=== PATIENT | female | born 1965 | race Caucasian/White ===

== ENCOUNTER → 2017-10-07 | Outpatient (CLI) | payer OTHER ==
[~2017-10-07] VITALS: Ht 162.6 cm; Wt 87.8 kg
[~2017-10-07] MED LIST: BCP TD; CEPHALEXIN; ESTRACE2 MG PO; FORT1000TA PO; ZESTORETIC 12.51 TA1 PO
[2017-10-07 09:36] VITALS: BP 130/90; PULSE 84
== END ==
LOC: LIGHT 08:56
DX: E11.9 Type 2 diabetes mellitus without complications (principal); I10 Essential (primary) hypertension; G47.33 Obstructive sleep apnea (adult) (pediatric); E66.9 Obesity, unspecified; Z68.33 Body mass index [BMI] 33.0-33.9, adult; Z71.3 Dietary counseling and surveillance

== ENCOUNTER → 2017-10-09 | Outpatient (CLI) | payer OTHER | LOC: MC.RAD 10:13 | DX: Z12.31 Encounter for screening mammogram for malignant neoplasm of breast (principal) ==

== ENCOUNTER → 2017-10-27 | Outpatient (CLI) | payer OTHER ==
[~2017-10-27] VITALS: Ht 162.6 cm; Wt 86.4 kg
== END ==
LOC: LIGHT 09:45
DX: Z01.89 Encounter for other specified special examinations (principal)

== ENCOUNTER → 2017-11-03 | Outpatient (CLI) | payer OTHER | LOC: LIGHT 14:50 | DX: Z01.818 Encounter for other preprocedural examination (principal) ==

== ENCOUNTER → 2017-11-05 | Outpatient (CLI) | payer OTHER ==
[~2017-11-05] VITALS: Ht 162.6 cm; Wt 87.8 kg
[2017-11-05 08:34] VITALS: BP 150/90; PULSE 72
== END ==
LOC: LIGHT 08:28
DX: E11.9 Type 2 diabetes mellitus without complications (principal); I10 Essential (primary) hypertension; G47.33 Obstructive sleep apnea (adult) (pediatric); E66.9 Obesity, unspecified; Z68.33 Body mass index [BMI] 33.0-33.9, adult; Z71.3 Dietary counseling and surveillance
CPT/HCPCS: G0463

== ENCOUNTER → 2017-12-03 | Outpatient (CLI) | payer OTHER ==
[~2017-12-03] VITALS: Ht 162.6 cm; Wt 85.5 kg
== END ==
LOC: LIGHT 14:03
DX: E11.9 Type 2 diabetes mellitus without complications (principal); I10 Essential (primary) hypertension; G47.33 Obstructive sleep apnea (adult) (pediatric); E66.9 Obesity, unspecified; Z68.32 Body mass index [BMI] 32.0-32.9, adult; Z71.3 Dietary counseling and surveillance
CPT/HCPCS: G0463

== ENCOUNTER → 2018-01-07 | Outpatient (CLI) | payer OTHER ==
[~2018-01-07] VITALS: Ht 162.6 cm; Wt 85.7 kg
[~2018-01-07] MED LIST changes: +PHENTERMINE15 MG PO
[2018-01-07 09:48] VITALS: BP 110/80; PULSE 80
== END ==
LOC: LIGHT 09:33
DX: E11.9 Type 2 diabetes mellitus without complications (principal); I10 Essential (primary) hypertension; G47.33 Obstructive sleep apnea (adult) (pediatric); E66.9 Obesity, unspecified; Z68.32 Body mass index [BMI] 32.0-32.9, adult; Z71.3 Dietary counseling and surveillance
CPT/HCPCS: G0463

== ENCOUNTER → 2018-02-18 | Outpatient (CLI) | payer OTHER ==
[~2018-02-18] VITALS: Ht 162.6 cm; Wt 81.4 kg
[2018-02-18 09:00] VITALS: BP 120/70; PULSE 80
== END ==
LOC: LIGHT 08:54
DX: E11.9 Type 2 diabetes mellitus without complications (principal); I10 Essential (primary) hypertension; G47.33 Obstructive sleep apnea (adult) (pediatric); Z68.30 Body mass index [BMI] 30.0-30.9, adult; Z71.3 Dietary counseling and surveillance
CPT/HCPCS: G0463

== ENCOUNTER → 2021-11-18 | Outpatient (CLI) | payer OTHER | LOC: MC.RAD 07:00 | DX: Z12.31 Encounter for screening mammogram for malignant neoplasm of breast (principal) ==